=== PATIENT | female | born 1955 | race African-American/Black ===

== ENCOUNTER 2018-09-09 11:46 | Inpatient (IN) | payer BC ==
[~2018-09-09] VITALS: Ht 160 cm; Wt 72.6 kg
[2018-09-09] MEDS ORDERED: CLONIDINE 0.2MG TABLET PO ONE (12:30)
[2018-09-09] MEDS ORDERED: ASPIRIN 325MG TABLET PO ONE (12:30)
[2018-09-09 13:01] LABS: BASOPHILS % 0.7 % (0.0-2.0); EOSINOPHILS % 0.9 % (0.0-5.0); HEMATOCRIT. 39.5 % (36.0-48.0); HEMOGLOBIN. 13.3 g/dL (12.0-16.0); LYMPHOCYTES % 20.9 % (20.0-50.0); MEAN CORPUSCULAR HEMOGLOBIN 30.7 pg (28.0-32.0); MEAN CORPUSCULAR VOLUME 91.1 fL (81.0-99.0); MEAN PLATELET VOLUME 11.5 fl (7.4-10.4); MONOCYTES % 6.3 % (2.0-8.0); NEUTROPHILS % 71.2 % (40.0-76.0); PLATELET 183 x1000/uL (130-400); RED BLOOD CELL COUNT 4.34 mill/uL (4.2-5.4); RED CELL DISTRIBUTION WIDTH 13.9 % (11.6-14.6)
[2018-09-09 13:06] LABS: CHLORIDE 102 mEq/L (98-107)
[2018-09-09 13:14] LABS: D-DIMER 0.42 mg/L FEU (<0.50); INR 1.1; PARTIAL THROMBOPLASTIN TIME 28.3 sec (23.4-31.0)
[2018-09-09] MEDS ORDERED: GUAIFENESIN 200MG/10ML SUGAR FREE UDC PO PRN (14:00)
[2018-09-09] MEDS ORDERED: MAGNESIUM/ALUMINUM HYDROXIDE/SIMETHICONE 30ML UDC PO PRN (14:00)
[2018-09-09] MEDS ORDERED: CLONIDINE 0.1MG TABLET PO PRN (14:00)
[2018-09-09] MEDS ORDERED: DIPHENHYDRAMINE 50MG/ML VIAL IV PRN (14:00)
[2018-09-09] MEDS ORDERED: HYDROCODONE/ACETAMINOPHEN 5/325MG TABLET PO PRN (14:00)
[2018-09-09] MEDS ORDERED: ACETAMINOPHEN 650MG/20.3ML UDC GT PRN (14:00)
[2018-09-09] MEDS ORDERED: ACETAMINOPHEN 650MG SUPP PR PRN (14:00)
[2018-09-09] MEDS ORDERED: ACETAMINOPHEN 325MG TABLET PO PRN (14:00)
[2018-09-09] MEDS ORDERED: NA PHOS,M-B/NA PHOS,DI-BA ENEMA 118ML PR PRN (14:00)
[2018-09-09] MEDS ORDERED: ONDANSETRON HCL 4MG/2ML INJ IV PRN (14:00)
[2018-09-09] MEDS ORDERED: DOCUSATE SODIUM 100MG CAPSULE PO PRN (14:00)
[2018-09-09] MEDS ORDERED: REGADENOSON 0.4 MG/5 ML IV NR (14:30)
[2018-09-09 14:33] LABS: CLARITY URINE CLOUDY (CLEAR); COLOR URINE DARK YELLOW (YELLOW); KETONES URINE TRACE (NEGATIVE); LEUKOCYTE ESTERASE URINE 2+ (NEGATIVE); NITRITE URINE NEGATIVE (NEGATIVE); OCCULT BLOOD URINE NEGATIVE (NEGATIVE); PH URINE 5.5 (4.5-8.0); PROTEIN URINE 1+ (NEGATIVE); SPECIFIC GRAVITY URINE 1.028 (1.005-1.030)
[2018-09-09 15:32] LABS: *AMPHETAMINES SCREEN URINE NEGATIVE (NEGATIVE); *BARBITURATES SCREEN URINE NEGATIVE (NEGATIVE); *COCAINE SCREEN URINE NEGATIVE (NEGATIVE)
[2018-09-09 15:33] LABS: *BENZODIAZEPINES SCREEN URINE NEGATIVE (NEGATIVE); CANNABINOID URINE SCREEN NEGATIVE (NEGATIVE); METHADONE URINE SCREEN NEGATIVE (NEGATIVE); OPIATES URINE SCREEN PRESUMTIVE POSITIVE (NEGATIVE); PHENCYCLIDINE URINE SCREEN NEGATIVE (NEGATIVE)
[2018-09-09 20:01] LABS: CREATINE KINASE MB FRACTION 1.3 ng/mL (0.5-3.6)
[2018-09-09 20:44] VITALS: BP 121/75
[2018-09-09] MEDS: AMLODIPINE 2.5MG TABLET PO SCH (22:50)
[2018-09-09] MEDS: ENOXAPARIN 40MG/0.4ML SYR SUBCUT SCH (22:51)
[2018-09-10] VITALS: BP 126/74
[2018-09-10] MEDS ORDERED: [UNRECOGNIZED DRUG - CODE] PO (01:10)
[2018-09-10] MEDS ORDERED: CELE400C PO (01:10)
[2018-09-10] MEDS ORDERED: OMEG100016 PO (01:10)
[2018-09-10] MEDS ORDERED: TURM500C6 PO (01:10)
[2018-09-10] MEDS ORDERED: GABA800T97 PO (01:10)
[2018-09-10 04:00] VITALS: BP 104/54
[2018-09-10 07:47] LABS: BASOPHILS % 0.7 % (0.0-2.0); EOSINOPHILS % 1.5 % (0.0-5.0); HEMATOCRIT. 35.3 % (36.0-48.0); HEMOGLOBIN. 11.7 g/dL (12.0-16.0); LYMPHOCYTES % 27.4 % (20.0-50.0); MEAN CORPUSCULAR HEMOGLOBIN 30.3 pg (28.0-32.0); MEAN CORPUSCULAR VOLUME 91.2 fL (81.0-99.0); MEAN PLATELET VOLUME 11.6 fl (7.4-10.4); MONOCYTES % 7.2 % (2.0-8.0); NEUTROPHILS % 63.2 % (40.0-76.0); PLATELET 161 x1000/uL (130-400); RED BLOOD CELL COUNT 3.87 mill/uL (4.2-5.4); RED CELL DISTRIBUTION WIDTH 13.9 % (11.6-14.6)
[2018-09-10] MEDS ORDERED: SULF500T8 PO (07:51)
[2018-09-10 08:00] VITALS: BP 118/66
[2018-09-10 08:37] LABS: CHLORIDE 104 mEq/L (98-107)
[2018-09-10] MEDS: ASPIRIN 81MG EC TABLET PO SCH (08:44)
[2018-09-10] MEDS: AMLODIPINE 2.5MG TABLET PO SCH ×2 (08:44→21:34)
[2018-09-10 08:48] LABS: LDL CHOLESTEROL 91 mg/dL (5-100)
[2018-09-10 08:50] LABS: CREATINE KINASE 86 IU/L (26-192); CREATINE KINASE MB FRACTION 1.4 ng/mL (0.5-3.6)
[2018-09-10 08:52] LABS: HDL CHOLESTEROL 93 mg/dL (40-59)
[2018-09-10] MEDS ORDERED: PHENTERMINE HCL 37.5 MG PO SCH (09:45)
[2018-09-10] MEDS: GABAPENTIN 400MG CAPSULE PO SCH ×2 (09:56→17:58)
[2018-09-10] MEDS: SULFASALAZINE 500MG TABLET PO SCH ×2 (09:57→18:01)
[2018-09-10] MEDS: FISH OIL/OMEGA-3 FATTY ACIDS 1000MG CAPSULE PO SCH ×2 (11:55→17:58)
[2018-09-10 12:00] VITALS: BP 110/53
[2018-09-10 16:00] VITALS: BP 103/67
[2018-09-10 20:00] VITALS: BP 130/75
[2018-09-11 00:09] VITALS: BP 109/61
[2018-09-11] MEDS: GABAPENTIN 400MG CAPSULE PO SCH ×2 (03:14→11:06)
[2018-09-11] MEDS: ENOXAPARIN 40MG/0.4ML SYR SUBCUT SCH (03:24)
[2018-09-11 04:00] VITALS: BP 132/67
[2018-09-11 07:55] LABS: CHLORIDE 106 mEq/L (98-107)
[2018-09-11 08:00] VITALS: BP 135/85
[2018-09-11 08:07] LABS: BASOPHILS % 0.9 % (0.0-2.0); EOSINOPHILS % 2.5 % (0.0-5.0); HEMATOCRIT. 36.2 % (36.0-48.0); HEMOGLOBIN. 11.7 g/dL (12.0-16.0); LYMPHOCYTES % 30.5 % (20.0-50.0); MEAN CORPUSCULAR HEMOGLOBIN 29.7 pg (28.0-32.0); MEAN CORPUSCULAR VOLUME 91.7 fL (81.0-99.0); MEAN PLATELET VOLUME 11.4 fl (7.4-10.4); MONOCYTES % 7.9 % (2.0-8.0); NEUTROPHILS % 58.2 % (40.0-76.0); PLATELET 158 x1000/uL (130-400); RED BLOOD CELL COUNT 3.94 mill/uL (4.2-5.4); RED CELL DISTRIBUTION WIDTH 14.1 % (11.6-14.6)
[2018-09-11] MEDS ORDERED: REGADENOSON 0.4 MG/5 ML IV ONE (09:38)
[2018-09-11] MEDS ORDERED: CELECOXIB 200MG CAPSULE PO SCH (09:45)
[2018-09-11] MEDS: SULFASALAZINE 500MG TABLET PO SCH (11:06)
[2018-09-11] MEDS: FISH OIL/OMEGA-3 FATTY ACIDS 1000MG CAPSULE PO SCH (11:06)
[2018-09-11] MEDS: ASPIRIN 81MG EC TABLET PO SCH (11:07)
[2018-09-11] MEDS: AMLODIPINE 2.5MG TABLET PO SCH (11:07)
[2018-09-11 11:59] VITALS: BP 135/85
[2018-09-11 12:00] VITALS: BP 132/78
[2018-09-11 12:51] VITALS: BP 132/78
== END 2018-09-11 14:56 | disposition home or self-care (01) | DRG 74 ==
LOC: ER 11:46 → 7WST 12:21 → EDBEDREQ 13:45 → ENRESERV 20:10
PROVIDERS: ADMIT Family Medicine; ATTEND Family Medicine
DX: G90.9 Disorder of the autonomic nervous system, unspecified (principal); E44.1 Mild protein-calorie malnutrition; N39.0 Urinary tract infection, site not specified; M19.90 Unspecified osteoarthritis, unspecified site; D50.9 Iron deficiency anemia, unspecified; K21.9 Gastro-esophageal reflux disease without esophagitis; I11.9 Hypertensive heart disease without heart failure; J44.9 Chronic obstructive pulmonary disease, unspecified; Z68.28 Body mass index [BMI] 28.0-28.9, adult; Z88.2 Allergy status to sulfonamides; Z80.0 Family history of malignant neoplasm of digestive organs; Z82.49 Family history of ischemic heart disease and other diseases of the circulatory system
CPT/HCPCS: 36415; 71045; 78452; 80048; 80061; 80305; 82550; 82553; 82962; 83036; 83735; 83880; 84443; 84484; 85379; 93005; 93017; 93306; 99285; A9500; J1650; J2785